=== PATIENT | male | born 1995 | race Hispanic/Latino ===

== ENCOUNTER → 2017-06-07 | Outpatient (REF) | payer OTHER ==
[2017-06-07 14:12] LABS: % NORMAL FORMS < 4 % (>=4); IMMOTILITY 61 %; NON PROGRESSIVE MOTILITY (c) 24 %; PROGRESSIVE MOTILITY (a) 15 % (>=32); SPERM# 28.6 M/Ejac (>=39); TOTAL FUNCTIONAL 0.3 M/Ejac.; TOTAL MOTILITY 39 % (>=40); TOTAL PROGRESSIVE SPERM 4.3 M/Ejac.
== END ==
LOC: M LAB REF 12:50
PROVIDERS: ATTEND General Practice
DX: N46.9 Male infertility, unspecified (principal)